=== PATIENT | male | born 1985 | race Caucasian/White ===

== ENCOUNTER 2016-10-14 10:32 | Emergency (ER) | payer MEDICAID ==
[2016-10-14 10:47] VITALS: BP 117/76; PULSE 77; RESP 16; TEMP 98.2; O2SAT 95
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
--- NOTE | 2016-10-14 11:40 | DX ---
Right hand - 3 views dated October 14, 2016 Indication: Trauma. Pain. Findings: The normally mineralized bones are anatomically aligned. No fracture, joint space abnorm ality, or underlying bony lesion. Mild soft tissue swelling overlies the distal metacarpal row. Impression: Negative. No acute fracture.
== END 2016-10-14 11:45 | disposition home or self-care (01) ==
DX: S69.91XA Unspecified injury of right wrist, hand and finger(s), initial encounter (principal); X58.XXXA Exposure to other specified factors, initial encounter; Y99.8 Other external cause status; Y93.89 Activity, other specified

== ENCOUNTER 2017-04-23 23:04 | Emergency (ER) | payer MEDICAID ==
[2017-04-23 23:11] VITALS: TEMP 98.8
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
[2017-04-24] MEDS ORDERED: OXYCODONE/APAP 5/325MG PREPACK#4 BTL TAKEHOME ONE (00:08)
[2017-04-24] MEDS ORDERED: fentaNYL 100 MCG/2 ML INJ IVP ONE (00:25)
[2017-04-24] MEDS ORDERED: NS 1,000 ML IV ONE (00:25)
[2017-04-24 00:44] LABS: % IMMATURE GRANULYOCYTES 0.2 % (0.0-1.1); ABSOLUTE IMMATURE GRANULOCYTES 0.02 10^3/uL (0.00-0.10); ADD DIFF? NO; ADD MORPH? NO; ADD SCAN? NO; ATYPICAL LYMPHOCYTE FLAG 0 (0-99); FRAGMENT RBC FLAG 0 (0-99); HEMATOCRIT 35.2 % (40.0-51.0); HEMOGLOBIN 12.6 g/dL (13.7-17.5); LEFT SHIFT FLG 0 (0-99); LIPEMIA HEMOLYSIS FLAG 90 (0-99); MEAN CELL HEMOGLOBIN CONCENTR. 35.8 g/dL (32.4-36.7); MEAN CELL VOLUME 89.3 fL (81.5-99.8); MEAN PLATELET VOLUME 9.9 fL (8.7-11.7); PLATELET CLUMPS FLAG 10 (0-99); PLATELET COUNT 258 10^3/uL (150-400); RED BLOOD CELL COUNT 3.94 10^6/uL (4.40-6.38); RED CELL DISTRIBUTION WIDTH 11.7 % (11.5-15.2)
[2017-04-24 00:54] LABS: ANION GAP 11 mEq/L (8-16); CALCIUM 9.8 mg/dL (8.5-10.4); CARBON DIOXIDE 23 mEq/l (22-31); CHLORIDE 107 mEq/L (97-110); CREATININE 0.9 mg/dL (0.7-1.3); GLOMERULAR FILTRATION RATE > 60; GLUCOSE 85 mg/dL (70-100); POTASSIUM 4.3 mEq/L (3.5-5.2); SODIUM 141 mEq/L (134-144)
[2017-04-24 01:35] VITALS: BP 129/60; PULSE 90; RESP 25; O2SAT 98
== END 2017-04-24 01:35 | disposition home or self-care (01) ==
DX: S82.92XA Unspecified fracture of left lower leg, initial encounter for closed fracture (principal); E10.9 Type 1 diabetes mellitus without complications; V89.2XXA Person injured in unspecified motor-vehicle accident, traffic, initial encounter; Y92.410 Unspecified street and highway as the place of occurrence of the external cause

== ENCOUNTER 2017-05-01 11:42 | Inpatient (IN) | payer MEDICAID ==
[2017-05-01] MEDS ORDERED: ceFAZolin 2 GM/DEXTROSE 100 ML IV ONE (12:18)
[2017-05-01] MEDS ORDERED: NS 1,000 ML IV ONE (12:18)
[2017-05-01] MEDS ORDERED: LET GEL TOPICAL 1 EA SYR TP ONE (12:25)
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
[2017-05-01 13:17] LABS: % IMMATURE GRANULYOCYTES 0.5 % (0.0-1.1); ABSOLUTE IMMATURE GRANULOCYTES 0.08 10^3/uL (0.00-0.10); ADD DIFF? NO; ADD MORPH? NO; ADD SCAN? NO; ATYPICAL LYMPHOCYTE FLAG 10 (0-99); FRAGMENT RBC FLAG 0 (0-99); HEMOGLOBIN 10.8 g/dL (13.7-17.5); LEFT SHIFT FLG 10 (0-99); LIPEMIA HEMOLYSIS FLAG 90 (0-99); MEAN CELL HEMOGLOBIN 31.8 pg (27.9-34.1); MEAN CELL HEMOGLOBIN CONCENTR. 34.8 g/dL (32.4-36.7); MEAN CELL VOLUME 91.2 fL (81.5-99.8); MEAN PLATELET VOLUME 9.4 fL (8.7-11.7); PLATELET CLUMPS FLAG 0 (0-99); PLATELET COUNT 444 10^3/uL (150-400); RED CELL DISTRIBUTION WIDTH 12.1 % (11.5-15.2)
[2017-05-01 13:41] LABS: ANION GAP 14 mEq/L (8-16); C-REACTIVE PROTEIN 70.8 mg/L (<10.0); CALCIUM 9.2 mg/dL (8.5-10.4); CARBON DIOXIDE 22 mEq/l (22-31); CHLORIDE 107 mEq/L (97-110); CREATININE 0.8 mg/dL (0.7-1.3); GLOMERULAR FILTRATION RATE > 60; GLUCOSE 172 mg/dL (70-100); POTASSIUM 4.5 mEq/L (3.5-5.2); SODIUM 143 mEq/L (134-144)
[2017-05-01 13:49] LABS: SEDIMENTATION RATE 45 MM/HR (0-15)
[2017-05-01] MEDS ORDERED: ONDANSETRON 4 MG/2 ML VIAL IVP PRN (16:15)
[2017-05-01] MEDS: VANCOMYCIN HCL/NORMAL SALINE 250 ML IV SCH (16:27)
[2017-05-01] MEDS ORDERED: D50W 25 GM/50 ML SYR IVP PRN (16:58)
[2017-05-01] MEDS ORDERED: D10W 250 ML PRN HYPOGLYCEMIA IV (17:00)
[2017-05-01] MEDS: ALPRAZolam 1 MG TAB PO PRN (17:51)
[2017-05-01] MEDS: NS 1,000 ML IV SCH (17:51)
[2017-05-01] MEDS: oxyCODONE IR 5 MG TAB PO PRN ×2 (17:51→21:12)
[2017-05-01] MEDS: INSULIN REGULAR HUMAN 100 UNIT/ML SC SCH ×2 (17:51→21:33)
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
[2017-05-01 18:24] LABS: HEMATOCRIT 28.1 % (40.0-51.0); HEMOGLOBIN 9.9 g/dL (13.7-17.5)
[2017-05-01] MEDS: PIPERACILLIN/TAZO 3.375 GM/DEX 50 ML IV SCH ×2 (18:38→23:22)
[2017-05-01] MEDS: ACETAMINOPHEN 325 MG TAB PO PRN (21:12)
[2017-05-01] MEDS: HYDROmorphONE/DILAUDID 1 MG/ML SYR IVP PRN (21:33)
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
[2017-05-02] MEDS: ACETAMINOPHEN 325 MG TAB PO PRN ×2 (03:15→08:01)
[2017-05-02] MEDS: oxyCODONE IR 5 MG TAB PO PRN ×4 (03:16→23:17)
[2017-05-02] MEDS: VANCOMYCIN HCL/NORMAL SALINE 250 ML IV SCH ×2 (03:25→14:41)
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
[2017-05-02] MEDS: PIPERACILLIN/TAZO 3.375 GM/DEX 50 ML IV SCH ×4 (05:24→23:18)
[2017-05-02] MEDS: NS 1,000 ML IV SCH (06:41)
[2017-05-02] MEDS: INSULIN REGULAR HUMAN 100 UNIT/ML SC SCH ×4 (08:00→22:28)
[2017-05-02] MEDS: LOSARTAN POTASSIUM 25 MG TAB PO SCH (08:01)
[2017-05-02] MEDS: INSULIN GLARGINE 100 UNITS/ML SYRINGE SC SCH (08:01)
--- NOTE | 2017-05-02 08:41 | PCMIDPN ---
Assessment/Plan: Assessment/Plan: 1. LLE skin/soft tissue infection after trauma -Ct with Displaced fracture, going to OR today. -Blood cx pending. - On empiric VAnco + zosyn for now. Await OR findings to better direct coverage and length of therapy needed going forward. -Recheck labs in AM. check vanco trough in AM. Meds vanco 1g q12- 05/01/17 zosyn 3.375gm q6- 05/01/17 Subjective: Febrile. c/o pain involving LLE. Patient just wants to rest. Not opening eyes during conversation. Denies sob, abd pian or diarrhea Objective: Vital Signs Temp Pulse Resp BP Pulse Ox 38.4 C H 93 14 117/58 L 93 05/02/17 07:22 05/02/17 07:22 05/02/17 07:22 05/02/17 08:01 05/02/17 07:22 Laboratory Results 05/01/17 18:00 05/01/17 05/02/17 05/03/17 05:59 05:59 05:59 Intake Total 2909 Output Total 850 Balance 2059 ESR 45 MM/HR (0-15) H 05/01/17 13:07 C-Reactive Protein 70.8 mg/L (<10.0) H 05/01/17 13:07 - Physical Exam General Appearance: alert, no apparent distress Respiratory: lungs clear Cardiac/Chest: regular rate, rhythm Extremities: other (LLE wrapped) Abdomen: normal bowel sounds, non-tender, soft, No distended Skin: other (LLE wrapped. I did not take down as patient wanted to rest) ICD10 Worksheet Patient Problems: Problems Problem Status Onset Fracture of distal end of tibia Acute Fracture of distal fibula Acute Lower extremity ulceration Acute Rib fracture Acute
[2017-05-02] MEDS ORDERED: fentaNYL 100 MCG/2 ML INJ ONE ×3 (09:41→13:10)
[2017-05-02] MEDS ORDERED: PROPOFOL 200 MG/20 ML VIAL ONE ×2 (09:41→12:02)
[2017-05-02] MEDS ORDERED: BUPIVACAINE 0.5% 30 ML SDV ONE ×2 (09:42→13:12)
[2017-05-02] MEDS ORDERED: ROCURONIUM 100 MG/10 ML VIAL ONE (09:43)
[2017-05-02] MEDS ORDERED: LIDOCAINE 2% 5 ML SDV ONE (09:43)
[2017-05-02] MEDS ORDERED: ceFAZolin 2 GM/DEXTROSE 100 ML IV ONE (10:08)
--- NOTE | 2017-05-02 10:10 | SOAPPROG ---
SOAP Progress Note Assessment/Plan: Assessment: left ankle fx dislocation leg wounds medial blisters Plan: OR for orif left ankle and orif syndesmosis and possible wound I and D NPO 05/02/17 10:09 Subjective: pain on left leg Objective: Vital Signs Temp Pulse Resp BP Pulse Ox 38.4 C H 93 14 117/58 L 93 05/02/17 09:24 05/02/17 09:24 05/02/17 09:24 05/02/17 09:24 05/02/17 09:24 Laboratory Results 05/01/17 18:00 05/01/17 05/02/17 05/03/17 05:59 05:59 05:59 Intake Total 2909 Output Total 850 Balance 2059 splint intact ICD10 Worksheet Patient Problems: Problems Problem Status Onset Fracture of distal end of tibia Acute Fracture of distal fibula Acute Lower extremity ulceration Acute Rib fracture Acute
--- NOTE | 2017-05-02 10:19 | PDANEPAE ---
ANE History of Present Illness left ankle fx and infection s/p trauma ANE Past Medical History - Cardiovascular History Hx Hypertension: Yes Hx Arrhythmias: No Hx Chest Pain: No Hx Coronary Artery / Peripheral Vascular Disease: No Hx CHF / Valvular Disease: No Hx Palpitations: No - Pulmonary History Hx COPD: No Hx Asthma/Reactive Airway Disease: No Hx Recent Upper Respiratory Infection: No Hx Oxygen in Use at Home: No Hx Sleep Apnea: No Sleep Apnea Screening Result - Last Documented: Negative - Endocrine History Hx Diabetes: Yes ANE Review of Systems Review of systems is: negative - Exercise capacity Exercise capacity: >=4 METS ANE Patient History - Allergies Allergies/Adverse Reactions: codeine [Codeine] Allergy (Verified 05/01/17 11:46) - Home Medications Home medications: home medication list seen and reviewed Home Medications: Insulin Glargine [Lantus Insulin Vial] 30 unit SQ DAILY 08/21/11 [Last Taken 30 units] Insulin Lispro [Humalog] 0 unit SQ TID 08/21/11 [Last Taken 04/30/17] ALPRAZolam [Xanax 1 MG (*)] 1 mg PO PRN PRN 05/14/16 [Last Taken 04/30/17] Losartan Potassium [Cozaar 25 mg (*)] 25 mg PO DAILY 05/14/16 [Last Taken ] Herbals/Supplements -Info Only 1 ea PO DAILY 05/01/17 [Last Taken 05/01/17] - NPO status NPO Since - Liquids (Date): 05/02/17 NPO Since - Liquids (Time): 07:45 NPO Since - Solids (Date): 05/02/17 NPO Since - Solids (Time): 00:00 - Anes Hx Anes Hx: no prior problems - Smoking Hx Smoking Status: Never smoked - Alcohol Use Alcohol Use: Occasionally ANE Labs/Vital Signs - Labs Result Diagrams: 05/01/17 18:00 05/01/17 13:07 - Vital Signs Blood Pressure: 117/58 Heart Rate: 93 Respiratory Rate: 14 O2 Sat (%): 93 Height: 175.26 cm Weight: 68.039 kg ANE Physical Exam - Airway Neck exam: FROM Mallampati Score: Class 1 Mouth exam: dentures - Pulmonary Pulmonary: no respiratory distress - Cardiovascular Cardiovascular: regular rate and rhythym - ASA Status ASA Status: II ANE Anesthesia Plan Anesthesia Plan: general endotracheal anesthesia
[2017-05-02] MEDS ORDERED: MIDAZOLAM 2 MG/2 ML VIAL IVP ONE (10:27)
[2017-05-02 11:02] LABS: % IMMATURE GRANULYOCYTES 0.4 % (0.0-1.1); ABSOLUTE IMMATURE GRANULOCYTES 0.06 10^3/uL (0.00-0.10); ADD DIFF? NO; ADD MORPH? NO; ADD SCAN? NO; ATYPICAL LYMPHOCYTE FLAG 0 (0-99); FRAGMENT RBC FLAG 0 (0-99); HEMATOCRIT 28.4 % (40.0-51.0); LEFT SHIFT FLG 10 (0-99); LIPEMIA HEMOLYSIS FLAG 90 (0-99); MEAN CELL HEMOGLOBIN 31.8 pg (27.9-34.1); MEAN CELL HEMOGLOBIN CONCENTR. 35.2 g/dL (32.4-36.7); MEAN CELL VOLUME 90.4 fL (81.5-99.8); MEAN PLATELET VOLUME 9.2 fL (8.7-11.7); PLATELET CLUMPS FLAG 10 (0-99); PLATELET COUNT 338 10^3/uL (150-400); RED BLOOD CELL COUNT 3.14 10^6/uL (4.40-6.38); RED CELL DISTRIBUTION WIDTH 12.2 % (11.5-15.2)
[2017-05-02 11:17] LABS: HEMOGLOBIN A1C 6.4 % (4.0-6.0)
[2017-05-02 11:31] LABS: ALANINE AMINOTRANSFERASE 35 IU/L (21-72); ALBUMIN 2.8 g/dL (3.5-5.0); ALKALINE PHOSPHATASE 71 IU/L (38-126); ANION GAP 8 mEq/L (8-16); ASPARTATE AMINOTRANSFERASE 40 IU/L (17-59); BILIRUBIN,TOTAL 1.6 mg/dL (0.1-1.4); CARBON DIOXIDE 24 mEq/l (22-31); CHLORIDE 103 mEq/L (97-110); GLOMERULAR FILTRATION RATE > 60; GLUCOSE 178 mg/dL (70-100); SODIUM 135 mEq/L (134-144); TOTAL PROTEIN 5.3 g/dL (6.3-8.2)
[2017-05-02] MEDS ORDERED: HYDROmorphONE/DILAUDID 2 MG/ML INJ ONE (12:23)
--- NOTE | 2017-05-02 13:05 | POSTOPPROG ---
Post Op Note Date of Operation: 05/02/17 Surgeon: Luis Bains Recruiter Manager: Kaz Anesthesiologist: Janusz Pre-op Diagnosis: l ankle fx dislocation Post-op Diagnosis: same Indication: above Procedure: orif Left gerardo ankle and orif syndesmosis Inf/Abcess present in the surg proc area at time of surgery?: No EBL: Minimal
[2017-05-02] MEDS: fentaNYL 100 MCG/2 ML INJ IVP PRN ×2 (13:10→13:15)
[2017-05-02] MEDS ORDERED: HYDROmorphONE/DILAUDID 1 MG/ML SYR ONE (13:19)
[2017-05-02] MEDS ORDERED: ACETAMINOPHEN 500 MG TAB PO PRN (13:20)
[2017-05-02] MEDS ORDERED: NALOXONE HCL 0.4 MG/ML INJ IVP PRN (13:20)
[2017-05-02] MEDS ORDERED: OXYCODONE/APAP 5/325 TAB PO PRN (13:20)
[2017-05-02] MEDS ORDERED: PROMETHAZINE HCL 25 MG/ML INJ IVP PRN (13:20)
[2017-05-02] MEDS ORDERED: ONDANSETRON 4 MG/2 ML VIAL IVP PRN (13:20)
[2017-05-02] MEDS: HYDROmorphONE/DILAUDID 1 MG/ML SYR IVP PRN ×4 (13:20→15:11)
--- NOTE | 2017-05-02 13:21 | POSTANESTH ---
Post Anesthetic Evaluation Cardiovascular Status: Normal, Stable Respiratory Status: Normal, Stable Level of Consciousness/Mental Status: Can Participate in Eval Pain Control: Adequate, Prn Tx Ordered Nausea/Vomiting Control: Adequate, Prn Tx Ordered Complications Possibly Related to Anesthesia: None Noted
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
[2017-05-02 14:15] LABS: HEMOGLOBIN A1C 6.3 % (4.0-6.0)
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
[2017-05-02] MEDS: ALPRAZolam 1 MG TAB PO PRN (14:41)
[2017-05-02] MEDS ORDERED: IBUPROFEN 600 MG TAB PO ONE (15:37)
[2017-05-02] MEDS: ACETAMINOPHEN 500 MG TAB PO SCH ×2 (16:23→22:29)
[2017-05-02] MEDS: IBUPROFEN 200 MG TAB PO PRN (20:45)
[2017-05-03] MEDS: VANCOMYCIN HCL/NORMAL SALINE 250 ML IV SCH (03:23)
[2017-05-03] MEDS: PIPERACILLIN/TAZO 3.375 GM/DEX 50 ML IV SCH ×3 (06:20→17:30)
[2017-05-03] MEDS: ALPRAZolam 1 MG TAB PO PRN ×3 (06:24→22:00)
[2017-05-03] MEDS: oxyCODONE IR 5 MG TAB PO PRN ×4 (06:40→21:59)
[2017-05-03] MEDS: NS 1,000 ML IV SCH (07:56)
[2017-05-03] MEDS: INSULIN REGULAR HUMAN 100 UNIT/ML SC SCH ×4 (08:21→22:05)
[2017-05-03] MEDS: ACETAMINOPHEN 500 MG TAB PO SCH (08:31)
[2017-05-03] MEDS: LOSARTAN POTASSIUM 25 MG TAB PO SCH (08:31)
[2017-05-03] MEDS: INSULIN GLARGINE 100 UNITS/ML SYRINGE SC SCH (09:49)
--- NOTE | 2017-05-03 11:46 | SOAPPROG ---
SOAP Progress Note Assessment/Plan: Assessment: left ankle fx dislocation leg wounds medial blisters Status post ORIF left bimalleolar ankle fracture and syndesmotic fixation 05/02 Plan: He will remain nonweightbearing in left lower extremity Elevate as much as possible Ice over splint He must keep this dry As think his posterior leg wounds will heal in these, these are dressed I instructed him not remove the dressing. He has my card to make a follow-up appointment in 8 days for splint removal and cast placement. Will check the wounds at this time 05/02/17 10:09 05/03/17 11:44 Subjective: Pain in the ankle controlled. Objective: Vital Signs Temp Pulse Resp BP Pulse Ox 36.9 C 88 12 115/62 90 L 05/03/17 08:00 05/03/17 08:00 05/03/17 08:00 05/03/17 08:31 05/03/17 08:00 Microbiology 05/01/17 15:15 Blood Panel (PCR) - Final Blood No Organism Detected Laboratory Results 05/02/17 10:50 05/02/17 10:50 05/02/17 05/03/17 05/04/17 05:59 05:59 05:59 Intake Total 2909 1640 Output Total 850 830 200 Balance 2059 810 -200 - Time Spent With Patient Time Spent With Patient: His splint is intact he can move his toes his posterior wounds are dressed in a did not remove this. ICD10 Worksheet Patient Problems: Problems Problem Status Onset Fracture of distal end of tibia Acute Fracture of distal fibula Acute Lower extremity ulceration Acute Rib fracture Acute
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
[2017-05-03] MEDS: ENOXAPARIN 40 MG/0.4 ML SYR SC SCH (13:22)
[2017-05-03 15:50] LABS: % IMMATURE GRANULYOCYTES 0.5 % (0.0-1.1); ABSOLUTE IMMATURE GRANULOCYTES 0.06 10^3/uL (0.00-0.10); ADD DIFF? NO; ADD MORPH? NO; ADD SCAN? NO; ATYPICAL LYMPHOCYTE FLAG 20 (0-99); FRAGMENT RBC FLAG 0 (0-99); HEMATOCRIT 31.1 % (40.0-51.0); HEMOGLOBIN 10.8 g/dL (13.7-17.5); LEFT SHIFT FLG 0 (0-99); LIPEMIA HEMOLYSIS FLAG 90 (0-99); MEAN CELL HEMOGLOBIN 31.5 pg (27.9-34.1); MEAN CELL HEMOGLOBIN CONCENTR. 34.7 g/dL (32.4-36.7); MEAN CELL VOLUME 90.7 fL (81.5-99.8); MEAN PLATELET VOLUME 9.3 fL (8.7-11.7); PLATELET CLUMPS FLAG 0 (0-99); PLATELET COUNT 356 10^3/uL (150-400); RED BLOOD CELL COUNT 3.43 10^6/uL (4.40-6.38)
[2017-05-03 16:05] LABS: ANION GAP 9 mEq/L (8-16); CALCIUM 8.2 mg/dL (8.5-10.4); CARBON DIOXIDE 24 mEq/l (22-31); CHLORIDE 102 mEq/L (97-110); CREATININE 0.7 mg/dL (0.7-1.3); GLOMERULAR FILTRATION RATE > 60; GLUCOSE 157 mg/dL (70-100); POTASSIUM 4.1 mEq/L (3.5-5.2); SODIUM 135 mEq/L (134-144)
--- NOTE | 2017-05-03 19:07 | PCMIDPN ---
Assessment/Plan: Assessment/Plan: * Left lower extremity skin and soft tissue infection after traumatic injury: Blood cultures now showing 2/2 sets with Gram-positive rods. Await identification although could represent organism such as Clostridium (although only in a aerobic bottles to date) given mechanism of injury. Will continue Zosyn pending identification of Gram-positive rods. Will observe off vancomycin pending identification of gram-positive rods as many of these organisms will be susceptible to penicillin derivative such as piperacillin/ tazobactam. Repeat blood cultures to assess for clearing of bacteremia. Reassess popliteal fossa once dressing removed. 05/03/17 19:04 05/03/17 19:06 Subjective: Patient complains of Xanax being dosed too infrequently. Some left lower extremity pain present although improved versus prior. Operative findings reviewed with Dr. Bains - fracture was not open. Objective: Vital Signs Temp Pulse Resp BP Pulse Ox 37.3 C 89 12 114/51 L 92 05/03/17 16:25 05/03/17 16:25 05/03/17 16:25 05/03/17 16:25 05/03/17 16:25 Microbiology 05/01/17 15:15 Blood Panel (PCR) - Final Blood No Organism Detected Laboratory Results 05/03/17 15:40 05/03/17 15:40 05/02/17 05/03/17 05/04/17 05:59 05:59 05:59 Intake Total 2909 1640 Output Total 850 830 375 Balance 2059 810 -375 ESR 45 MM/HR (0-15) H 05/01/17 13:07 C-Reactive Protein 70.8 mg/L (<10.0) H 05/01/17 13:07 Vancomycin # 3 Zosyn # 3 Blood cultures 2/2 gram positive rods - Physical Exam General Appearance: alert, no apparent distress EENT: No scleral icterus, No conjunctival petechiae Respiratory: lungs clear, No respiratory distress Cardiac/Chest: regular rate, rhythm, No systolic murmur Extremities: other (Left lower extremity dressed postoperatively; abrasions over buttock improved with sizing machine and drier operator appearance) Abdomen: non-tender, No distended Skin: No embolic lesions ICD10 Worksheet Patient Problems: Problems Problem Status Onset Fracture of distal end of tibia Acute Fracture of distal fibula Acute Lower extremity ulceration Acute Rib fracture Acute
[2017-05-03] MEDS: IBUPROFEN 200 MG TAB PO PRN (20:29)
[2017-05-04] MEDS: oxyCODONE IR 5 MG TAB PO PRN ×5 (02:15→20:55)
[2017-05-04] MEDS: PIPERACILLIN/TAZO 3.375 GM/DEX 50 ML IV SCH ×6 (02:16→18:28)
[2017-05-04] MEDS: ALPRAZolam 1 MG TAB PO PRN ×2 (08:09→16:27)
[2017-05-04] MEDS: INSULIN REGULAR HUMAN 100 UNIT/ML SC SCH ×5 (08:09→21:20)
[2017-05-04] MEDS: ENOXAPARIN 40 MG/0.4 ML SYR SC SCH (08:09)
[2017-05-04] MEDS: INSULIN GLARGINE 100 UNITS/ML SYRINGE SC SCH (08:10)
[2017-05-04] MEDS: LOSARTAN POTASSIUM 25 MG TAB PO SCH (08:10)
[2017-05-04] MEDS: IBUPROFEN 200 MG TAB PO PRN ×2 (08:15→21:20)
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
--- NOTE | 2017-05-04 18:49 | PCMIDPN ---
Assessment/Plan: # Corynebacterium positive blood cultures - suspect contaminant. Repeat blood cx pending 05/04 # LLE cellulitis, unable to examine leg bc brace in place. Ok to change to PO Augmentin for 7 more days # Diarrhea r/o cdiff medication zosyn 3.375gm IV q6hr, #3 Subjective: patient c/o of pain in LLE and diarrhea intermittently c/o diarrhea Objective: Vital Signs Temp Pulse Resp BP Pulse Ox 37.3 C 71 16 122/68 H 93 05/03/17 22:57 05/04/17 16:00 05/04/17 16:00 05/04/17 16:00 05/04/17 16:00 Microbiology 05/01/17 15:15 Blood Panel (PCR) - Final Blood No Organism Detected Laboratory Results 05/03/17 15:40 05/03/17 15:40 05/03/17 05/04/17 05/05/17 05:59 05:59 05:59 Intake Total 1640 400 Output Total 830 875 700 Balance 810 -475 -700 ESR 45 MM/HR (0-15) H 05/01/17 13:07 C-Reactive Protein 70.8 mg/L (<10.0) H 05/01/17 13:07 - Physical Exam General Appearance: alert, no apparent distress Respiratory: No respiratory distress Cardiac/Chest: regular rate, rhythm Extremities: other (splint in place LLE, cap refill okay) Skin: No rash Neuro/Psych: other (aggitated) ICD10 Worksheet Patient Problems: Problems Problem Status Onset Fracture of distal end of tibia Acute Fracture of distal fibula Acute Lower extremity ulceration Acute Rib fracture Acute
[2017-05-05] MEDS: PIPERACILLIN/TAZO 3.375 GM/DEX 50 ML IV SCH ×2 (00:01→05:23)
[2017-05-05] MEDS: ALPRAZolam 1 MG TAB PO PRN ×3 (00:01→13:47)
[2017-05-05] MEDS: oxyCODONE IR 5 MG TAB PO PRN ×3 (01:02→09:53)
[2017-05-05 02:18] VITALS: RESP 16
[2017-05-05] MEDS: IBUPROFEN 200 MG TAB PO PRN (05:23)
[2017-05-05 08:09] VITALS: BP 133/72; PULSE 68; TEMP 98.2; O2SAT 95
[2017-05-05] MEDS: INSULIN REGULAR HUMAN 100 UNIT/ML SC SCH ×3 (08:31→12:15)
[2017-05-05] MEDS: ENOXAPARIN 40 MG/0.4 ML SYR SC SCH (08:32)
[2017-05-05] MEDS: LOSARTAN POTASSIUM 25 MG TAB PO SCH (08:32)
[2017-05-05] MEDS: INSULIN GLARGINE 100 UNITS/ML SYRINGE SC SCH (08:32)
[2017-05-05] MEDS ORDERED: AMOXICILLIN/CLAVULANATE POT 875/125 MG TAB PO SCH (09:00)
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
== END 2017-05-05 13:57 | disposition home or self-care (01) | DRG 854 ==
LOC: F3N 16:05
PROVIDERS: ADMIT Internal Medicine; ATTEND Internal Medicine
PROC: 0SSG04Z Reposition Left Ankle Joint with Internal Fixation Device, Open Approach (ICD-10-PCS; principal; 2017-05-02 16:15)
DX: A41.9 Sepsis, unspecified organism (principal); L97.929 Non-pressure chronic ulcer of unspecified part of left lower leg with unspecified severity; D62 Acute posthemorrhagic anemia; S82.842A Displaced bimalleolar fracture of left lower leg, initial encounter for closed fracture; F41.9 Anxiety disorder, unspecified; E10.9 Type 1 diabetes mellitus without complications; I10 Essential (primary) hypertension; S90.522A Blister (nonthermal), left ankle, initial encounter; Z72.0 Tobacco use; V03.90XA Pedestrian on foot injured in collision with car, pick-up truck or van, unspecified whether traffic or nontraffic accident, initial encounter; Z79.4 Long term (current) use of insulin
CPT/HCPCS: 96365; 97165-GO; C1713; C1769; J0690; J1170; J1650; J1815; J2250; J2405; J2543; J2704; J3010; J3370